=== PATIENT | male | born 1975 | race Caucasian/White ===

== ENCOUNTER 2016-07-15 19:14 | Emergency (ER) | payer OTHER ==
[~2016-07-15] VITALS: Ht 170.2 cm; Wt 114.3 kg
[~2016-07-15 19:14] MED LIST: NAPROSYN500 MG PO
[2016-07-15] MEDS ORDERED: ANTIVERT25 MG PO (19:39)
[2016-07-15] MEDS ORDERED: LISINOPRIL40 MG PO (19:41)
[2016-07-15 19:55] VITALS: BP 125/91
== END 2016-07-15 19:56 | disposition home or self-care (01) ==
LOC: EME 19:14
DX: H65.91 Unspecified nonsuppurative otitis media, right ear (principal); I10 Essential (primary) hypertension
CPT/HCPCS: 93005; 99281; 99284